=== PATIENT | female | born 1970 | race Caucasian/White ===

== ENCOUNTER 2019-02-20 08:09 | Observation (INO) ==
--- NOTE | 2019-02-20 08:36 | PROVIDER DOCUMENTATION ---
[id number] Abuse/Overdose - General Chief Complaint: Overdose Stated Complaint: overdose Time Seen by Provider: 02/20/19 08:34 Source: patient, EMS Allergies/Adverse Reactions: Allergies Allergy/AdvReac Type Severity Reaction Status Date / Time bupropion HCl * Allergy Severe Unknown Verified 01/17/19 02:22 [From Wellbutrin] chlorpromazine HCl * Allergy Severe HIVES Verified 01/17/19 02:22 [From Thorazine] prochlorperazine edisylate * Allergy Severe HIVES Verified 01/17/19 02:22 [From Compazine] prochlorperazine maleate * Allergy Severe HIVES Verified 01/17/19 02:22 [From Compazine] levofloxacin [From Levaquin] Allergy ITCHING Verified 01/17/19 02:22 vancomycin Allergy Unknown Verified 01/17/19 02:22 clindamycin AdvReac Unknown Verified 01/17/19 02:22 promethazine HCl * AdvReac Unknown Verified 01/17/19 02:22 [From Phenergan] Home Medications: Home Medication List Medication Instructions Recorded Confirmed Last Taken Type Duloxetine [Cymbalta] 30 mg PO DAILY 01/10/15 11/10/18 11/09/18 23:00 History Oxycodone HCl/Acetaminophen 1 tab PO 411/04/18 11/10/18 11/09/18 19:00 History [Oxycodone-Acetaminophen 10-325] Alprazolam [Xanax] 1 mg PO TID 11/09/18 11/10/18 11/09/18 19:00 History - History of Present Illness-Drug/Alcohol This episode of drinking or use began:: unsure Severity: reports: severe Situational problems related to:: reports: spouse Psychiatric Complaints: reports: altered mental status, hallucinating Associated Symptoms: denies: diaphoresis, diarrhea, seizure, shortness of breath, vomiting Any injuries associated with this episode of intoxication?: No Similar Symptoms Previously?: Yes Recently seen or treated by another doctor?: No Review of Systems - Adult - REVIEW OF SYSTEMS - ADULT ROS:: unobtainable per condition Constitutional: reports: no symptoms reported Past History - Adult - PAST MEDICAL HISTORY-ADULT Review of Records: reports: Nursing Assessment Review, Medications Reviewed, Social history reviewed & non-contributory. Major Childhood Illnesses: reports: denies history Cardiovascular: reports: HTN Respiratory: reports: denies history Gastrointestinal: reports: denies history Obstetrical/Gynecological: reports: denies history Genitourinary: reports: denies history Musculoskeletal: reports: denies history Neurological: reports: cancer/tumor, headaches/migraines, Seizures/Epilepsy Psychiatric: reports: anxiety, depression, suicide attempt Endocrine/Immune: reports: thyroid disorder Other Conditions: reports: denies history - PRIOR SURGERIES/PROCEDURES Surgical/Procedure History: reports: hysterectomy, joint replacement (knee left) , other (Brain abcess; thyroid, cervical spine and left knee) - PRIOR HOSPITALIZATIONS Prior Hospitalizations: reports: for similar symptoms, for other non-related - IMMUNIZATION STATUS Childhood Immunizations: See Nurse Assessment Flu Vaccine: See Nurse Assessment - FAMILY HISTORY Family History: diabetes (dad and brother) Physical Exam-General - PHYSICAL EXAM-ADULT Exam Limited by: drugs Initial Vital Signs Reviewed: Yes - CONSTITUTIONAL General Appearance: mild distress, lethargic, obtunded - EYES Eyes: PERRL/EOMI, other (conjugate gaze) - HEAD, EARS, NOSE, MOUTH & THROAT HENMT: normocephalic/atraumatic, moist mucous membranes - NECK Neck: full range of motion, supple - RESPIRATORY Respiratory: no respiratory distress, no accessory muscle use - CARDIOVASCULAR Cardiovascular: regular rate, rhythm - GASTROINTESTINAL (ABDOMEN) Abdominal Exam: non tender, soft, no organomegaly - LYMPHATIC Lymphatic: no adenopathy - MUSCULOSKELETAL Back Exam: normal inspection, no CVA tenderness, no vertebral tenderness Extremity: normal range of motion, non-tender Peripheral Pulses: dorsalis-pedis (R): 2+, dorsalis-pedis (L): 2+ - SKIN Integumentary: normal color, normal turgor, other (no track mccarthy) - NEUROLOGIC Neurologic: grossly normal - PSYCHIATRIC Psych/Mental Status: disoriented x 3, disheveled Progress - PLAN OF CARE/RESULTS Progress/Plan/Lab Results: Vital Signs - 8 hr 02/20/19 08:08 02/20/19 11:01 02/20/19 12:53 Temperature 98 F 98 F Pulse Rate 90 90 71 Respiratory Rate 14 14 16 Blood Pressure 151/122 151/89 162/94 O2 Sat by Pulse Oximetry 99 98 97 Laboratory Results - last 24 hr 02/20/19 02/20/19 02/20/19 08:19 08:19 08:23 WBC 6.71 RBC 4.33 Hgb 13.4 Hct 39.6 MCV 91.5 MCH 30.9 MCHC 33.8 RDW Std Deviation 13.8 Plt Count 236 MPV 10.4 Immature Gran % (Auto) 0.1 Neut % (Auto) 64.7 Lymph % (Auto) 25.9 [place] % (Auto) 9.1 Eos % (Auto) 0.1 Baso % (Auto) 0.1 Immature Gran # (Auto) 0.01 Neut # (Auto) 4.33 Lymph # (Auto) 1.74 [place] # (Auto) 0.61 H Eos # (Auto) 0.01 Baso # (Auto) 0.01 Sodium 142 Potassium 3.2 L Chloride 99 Carbon Dioxide 30 Anion Gap 14 BUN 13 Creatinine 0.7 Estimated GFR/1.73 m2 > 60 BUN/Creatinine Ratio 19 Glucose 117 H Calculated Osmolality 284 Calcium 10.1 Total Bilirubin 0.50 AST 18 ALT 13 Alkaline Phosphatase 94 Total Protein 7.5 Albumin 5.0 Globulin 3.0 Albumin/Globulin Ratio 2.0 Urine Source Urine Color Urine Clarity Urine pH Ur Specific [place] Urine Protein Urine Ketones Urine Blood Urine Nitrite Urine Bilirubin Urine Urobilinogen Urine Microscopic RBC Urine WBC Urine Microscopic WBC Ur Epithelial Cells Urine Crystals Urine Bacteria Urine Casts Urine Yeast Urine Glucose Urine Opiates Screen PRESUMPTIVE POSITIVE A Ur Oxycodone Screen PRESUMPTIVE POSITIVE A Urine Methadone Screen NONE DETECTED U Propoxyphene Qual NONE DETECTED Ur Barbituates Screen NONE DETECTED Ur Tricyclics Screen PRESUMPTIVE POSITIVE A Ur Phencyclidine Scrn NONE DETECTED Ur Amphetamines Screen PRESUMPTIVE POSITIVE A U Methamphetamines Scrn PRESUMPTIVE POSITIVE A U Benzodiazepines Scrn PRESUMPTIVE POSITIVE A Urine Cocaine Screen NONE DETECTED U Cannabinoids Screen NONE DETECTED 02/20/19 08:23 WBC RBC Hgb Hct MCV MCH MCHC RDW Std Deviation Plt Count MPV Immature Gran % (Auto) Neut % (Auto) Lymph % (Auto) [place] % (Auto) Eos % (Auto) Baso % (Auto) Immature Gran # (Auto) Neut # (Auto) Lymph # (Auto) [place] # (Auto) Eos # (Auto) Baso # (Auto) Sodium Potassium Chloride Carbon Dioxide Anion Gap BUN Creatinine Estimated GFR/1.73 m2 BUN/Creatinine Ratio Glucose Calculated Osmolality Calcium Total Bilirubin AST ALT Alkaline Phosphatase Total Protein Albumin Globulin Albumin/Globulin Ratio Urine Source CATH Urine Color YELLOW Urine Clarity SL. CLOUDY A Urine pH 6.0 Ur Specific [place] 1.015 Urine Protein TRACE A Urine Ketones NEGATIVE Urine Blood NEGATIVE Urine Nitrite NEGATIVE Urine Bilirubin NEGATIVE Urine Urobilinogen NORMAL Urine Microscopic RBC Not Reportable Urine WBC NEGATIVE Urine Microscopic WBC 0-2 Ur Epithelial Cells <10 Urine Crystals Urine Bacteria 2+ Urine Casts NONE SEEN Urine Yeast NONE SEEN Urine Glucose NEGATIVE Urine Opiates Screen Ur Oxycodone Screen Urine Methadone Screen U Propoxyphene Qual Ur Barbituates Screen Ur Tricyclics Screen Ur Phencyclidine Scrn Ur Amphetamines Screen U Methamphetamines Scrn U Benzodiazepines Scrn Urine Cocaine Screen U Cannabinoids Screen Orders Category Date Time Status CHEST-PORTABLE [RAD] Stat Exams 02/20/19 08:24 Completed CBC WITH ELECTRONIC DIFF [HEME] Stat Lab 02/20/19 08:19 Completed COMPREHENSIVE METABOLIC PANEL [CHEM] Stat Lab 02/20/19 08:19 Completed UA NIMS W/REFLEX CULT PL [URINALYSIS] Stat Lab 02/20/19 08:23 Completed URINE CULTURE [RM] Routine Lab 02/20/19 08:[address]UG SCREEN [address] Stat Lab 02/20/19 08:23 Completed EKG [EKG] Stat Ther 02/20/19 08:28 Draft Result Diagrams: 02/20/19 08:19 02/20/19 08:19 - REASSESSMENT Reassessment #1 Time Reassessed: 14:54 Status: improving Reassessment Comment: now awakening recognizing [facility] no longer thrashing in bed - EKG 1 Time of EKG reading by physician:: 08:35 EKG Read and Signed by:: Adam Bentley EKG Interpretation (*Must complete 3 of following elements*): Abnormal Rate: 91 Rhythm: sinus Chapman: normal QRS: normal [place] Interval: shortened ST Wave: non-specific ST changes Departure - Departure Date of Disposition Decision: 02/20/19 Time of Disposition Decision: 14:49 DIAGNOSIS: Polydrug abuse Disposition: ADMITTED INPATIENT 09 Certified Medical Emergency: Emergent Condition: Stable Referrals and Follow-Ups: None,PCP [Primary Care Provider] - - Critical Care Note This patient required my direct & personal management of CC.: No Attestation - Physician/ ANTHONY Attestation Patient care was provided by Advanced Practice Provider:: No The physician spent face to face time with patient:: Yes Advanced Practice Provider documentation review:: Supervising physician onsite and consulted in the evaluation and care of this patient. The physician did have a face to face encounter with the patient.
[2019-02-20 08:40] LABS: BASO# 0.01 X1000 (0.0-0.2); BASO% 0.1 % (0.0-0.8); EOS# 0.01 X1000 (0.0-0.7); EOS% 0.1 % (0.0-10.0); HEMATOCRIT 39.6 % (37.0-47.0); HEMOGLOBIN 13.4 g/dL (12.0-16.0); IMM GRAN# 0.01 X1000 (0.0-0.04); IMM GRAN% 0.1 % (0.0-0.5); LYMPH# 1.74 X1000 (1.2-3.4); LYMPH% 25.9 % (20.5-51.1); MCH 30.9 PG (27-31); MCHC 33.8 g/dL (33-37); MCV 91.5 FL (81-99); MONO# 0.61 X1000 (0.11-0.59); MONO% 9.1 % (1.7-9.3); MPV 10.4 FL (7.4-10.4); NEUT# 4.33 X1000 (1.4-6.5); NEUT% 64.7 % (42.2-75.2); PLT 236 X1000 (130-400); RBC 4.33 XMIL (4.2-5.4); RDW 13.8 % (11.5-14.5); WBC 6.71 X1000 (4.8-10.8)
--- NOTE | 2019-02-20 08:54 | Diag Imaging Result Doc PS360 ---
EXAM: CHEST-PORTABLE - 02/20/2019 HISTORY: ams TECHNIQUE: Portable chest COMPARISON: 11/04/2018 FINDINGS: Heart size is normal. The lungs appear clear. There is no pleural effusion or pneumothorax identified. IMPRESSION: No evidence of acute disease. Electronically signed by Lupillo Royal 02/20/2019 8:51 AM
[2019-02-20 08:59] LABS: UR AMPHETAMINES QUAL PRESUMPTIVE POSITIVE (NONE DETECT); UR BARBITUATES QUAL NONE DETECTED (NONE DETECT); UR BENZODIAZEPIN QUAL PRESUMPTIVE POSITIVE (NONE DETECT)
[2019-02-20 09:00] LABS: UR COCAINE QUAL NONE DETECTED (NONE DETECT); UR METHADONE QUAL NONE DETECTED (NONE DETECT); UR METHAMPHETAMINE QUAL PRESUMPTIVE POSITIVE (NONE DETECT); UR OPIATES QUAL PRESUMPTIVE POSITIVE (NONE DETECT); UR OXYCODONE QUAL PRESUMPTIVE POSITIVE (NONE DETECT); UR PCP QUAL NONE DETECTED (NONE DETECT); UR PROPOXYPHENE QUAL NONE DETECTED (NONE DETECT); UR TCA QUAL PRESUMPTIVE POSITIVE (NONE DETECT)
[2019-02-20 09:01] LABS: UR CANNABINOIDS QUAL NONE DETECTED (NONE DETECT)
[2019-02-20 09:06] LABS: AGAP 14; ALKALINE PHOSPHATASE 94 U/L (32-104); BUN 13 mg/dL (8-22); CALCIUM 10.1 mg/dL (8.8-10.2); CHLORIDE 99 mmol/L (98-107); COSMO 284; CREATININE 0.7 mg/dL (0.5-0.9); ESTIMATED GFR > 60; GLUCOSE 117 mg/dL (70-104); GOT 18 U/L (10-30); GPT 13 U/L (10-36); POTASSIUM 3.2 mmol/L (3.5-5.1); SODIUM 142 mmol/L (136-145); TCO2 30 mmol/L (25-35); TOTAL PROTEIN 7.5 g/dL (6.3-8.3)
[2019-02-20 09:21] LABS: BILIRUBIN URINE NEGATIVE (NEGATIVE); BLOOD URINE NEGATIVE (NEGATIVE); CLARITY SL. CLOUDY (CLEAR); COLOR YELLOW; GLUCOSE URINE NEGATIVE (NEGATIVE); KETONE URINE NEGATIVE (NEGATIVE); LEUKOCYTES URINE NEGATIVE (NEGATIVE); NITRITE URINE NEGATIVE (NEGATIVE); PROTEIN URINE TRACE mg/dL (NEGATIVE); SP GRAVITY URINE 1.015; UROBILINOGEN URINE NORMAL
[2019-02-20 09:23] LABS: URINE EPITHELIAL CELLS <10 /HPF (<10); URINE WBC 0-2 /HPF (<10)
[2019-02-20 09:24] LABS: URINE BACTERIA 2+ /HFP; URINE CAST NONE SEEN /LPF; URINE YEAST NONE SEEN /HPF
[2019-02-20 09:25] LABS: URINE SOURCE CATH
--- NOTE | 2019-02-20 09:51 | EKG Report ---
Test Performed on : 02/20/2019 08:17:11 AM Test Reason : ams Blood Pressure : / mmHG Vent. Rate : 091 BPM Atrial Rate : 091 BPM P-R Int : 110 ms QRS Dur : 074 ms QT Int : 430 ms P-R-T Axes : 000 043 060 degrees QTc Int : 528 ms Sinus rhythm. with short ID Nonspecific ST and T wave abnormality Prolonged QT Abnormal ECG When compared with ECG of 17-JAN-2019 04:20, (Unconfirmed) premature ventricular complexes. are no longer present Nonspecific T wave abnormality no longer evident in Lateral leads QT has lengthened Unconfirmed Result
[2019-02-20] MEDS ORDERED: NS 1,000 ML IV ONE ×2 (14:59→16:56)
[2019-02-20] MEDS ORDERED: NICODERM PATCH TD SCH (18:00)
[2019-02-20] MEDS ORDERED: TYLENOL PO PRN (20:52)
[2019-02-20] MEDS ORDERED: ZOFRAN IV PRN (20:52)
[2019-02-20] MEDS ORDERED: NS 1,000 ML IV SCH (21:00)
[2019-02-20 23:38] VITALS: BP 157/102
--- NOTE | 2019-02-21 00:07 | HISTORY AND PHYSICAL ---
CHIEF COMPLAINT: Overdose. HISTORY OF PRESENT ILLNESS: Patient presented to the hospital. Unsure how she actually got to the ER. She currently is obtunded. She is moving back and forth, but she does not answer any questions nor follow any commands. ALLERGIES: Wellbutrin, Thorazine, Compazine, Levaquin causing itching, vancomycin, clindamycin and Phenergan, all of which are unknown. MEDICATIONS: She has a history of taking Cymbalta and oxycodone as well as Xanax, but it does not appear as though these have been filled recently. REVIEW OF SYSTEMS: Unobtainable as she is confused, does not answer questions and no family present. PAST MEDICAL HISTORY: Per old chart has a history of hypertension, migraines, appears to have a history of seizures, depression, suicide attempt, chronic anxiety, hypothyroidism. SURGICAL HISTORY: She has had a hysterectomy, left knee surgery, has had a brain abscess and cervical spine surgery. FAMILY HISTORY: Diabetes in father and brother. SOCIAL HISTORY: I believe she is . Does smoke. It appears as though she takes illicit substances. PHYSICAL EXAMINATION: VITAL SIGNS: Reviewed. Temperature 98 degrees, pulse 90, respiratory 14, BP elevated initially at 151/122, currently improved at 140/92. GENERAL: Patient is confused, disoriented. The patient does not answer questions nor follow commands, but is observed to move all extremities. HEENT: Normocephalic. NECK: Supple. CARDIOVASCULAR: Regular rate. CHEST: Clear and nonlabored. ABDOMEN: Soft, appears nondistended, nontender. EXTREMITIES: She is noted to move all extremities. NEUROLOGIC: Unable to assess. SKIN: No rashes. LABORATORIES: CBC normal. Urine drug screen abnormal. ASSESSMENT: 1. Drug overdose. Unsure if this is intentional or unintentional, but regardless she is obtunded secondary to her overdose. 2. History of suicide attempt. 3. History of anxiety. 4. History of chronic pain. PLAN: We will admit patient to the hospital for observation and care as needed. We will continue to follow. cc: Harlan Tijerina MD
== END 2019-02-21 00:05 | disposition left against medical advice (07) ==
LOC: P.MEDSURG 08:09 → P.ED 08:09 → P.MEDSURG 17:17
PROVIDERS: ATTEND Family Medicine
CPT/HCPCS: 71010; 71045; 80053; 80104; 80301; 80305; 81001; 85025; 87088; 93005; A9270; G0431; G0434; G0477; J7030